=== PATIENT | female | born 1995 | race Caucasian/White ===

== ENCOUNTER 2017-10-13 16:32 | Emergency (ER) | payer MEDICAID ==
[2017-10-13] MEDS: SOD CHLORIDE 0.9% 1,000 ML IV (18:22)
[2017-10-13] MEDS: ACETAMINOPHEN 500 MG TAB PO (18:23)
[2017-10-13 20:26] LABS: URINE BLOOD (Dip) POC Trace-intact (NEGATIVE); URINE GLUCOSE (Dip) POC Negative (NEGATIVE); URINE KETONES (Dip) POC 2+ (NEGATIVE); URINE LEUKOCYTE EST (Dip) POC Negative (NEGATIVE); URINE NITRITE (Dip) POC Negative (NEGATIVE); URINE TOTAL PROTEIN POC Negative (NEGATIVE)
== END 2017-10-13 20:45 | disposition home or self-care (01) ==
LOC: FTE 16:32
DX: O99.89 Other specified diseases and conditions complicating pregnancy, childbirth and the puerperium (principal); R50.9 Fever, unspecified; Z3A.20 20 weeks gestation of pregnancy
CPT/HCPCS: 36415; 76810; 81003; 87400; 99285-25

== ENCOUNTER 2018-03-02 08:06 | Inpatient (IN) | payer MEDICAID ==
[2018-03-02] MEDS: LACTATED RINGER'S 1,000 ML IV ×3 (11:45→22:31)
[2018-03-02] MEDS ORDERED: METHYLERGONOVINE 0.2 MG INJ IM (12:00)
[2018-03-02] MEDS ORDERED: OXYTOCIN 30 UNITS/LR 500 ML IV (12:00)
[2018-03-02] MEDS ORDERED: LIDOCAINE 1% (MPF) 30 ML INJ INJ (12:00)
[2018-03-02] MEDS ORDERED: BUTORPHANOL 2 MG INJ IV (12:00)
[2018-03-02] MEDS ORDERED: CARBOPROST 250 MCG INJ IM (12:00)
[2018-03-02] MEDS ORDERED: MISOPROSTOL 200 MCG TAB PR (12:00)
[2018-03-02 12:04] LABS: ADD MAN DIFF? NO
[2018-03-02 12:12] LABS: ABNORMAL IP MESSAGE 1; BASOPHIL # 0.1 10^3/ul (0.0-0.1); BASOPHILS % 0.5 % (0.0-2.0); EOSINOPHILS # 0.1 10^3/ul (0.0-0.5); EOSINOPHILS % 0.9 % (0.0-7.0); HEMATOCRIT 34.1 % (37.0-47.0); HEMOGLOBIN 11.3 g/dl (12.0-16.0); LYMPHOCYTES % 20.9 % (15.0-51.0); MEAN CORPUSCULAR HEMOGLOBIN 31.8 pg (29.0-33.0); MEAN CORPUSCULAR HGB CONC 33.1 g/dl (32.0-37.0); MEAN CORPUSCULAR VOLUME 96.1 fl (82.0-101.0); MEAN PLATELET VOLUME 13.1 fl (7.4-10.4); MONOCYTE # 0.5 10^3/ul (0.3-0.9); MONOCYTES % 5.3 % (0.0-11.0); NEUTROPHILS % 71.6 % (39.0-77.0); PLATELET COUNT 155 10^3/UL (140-415); RED BLOOD COUNT 3.55 10^6/ul (4.20-5.40); RED CELL DISTRIBUTION WIDTH 13.3 % (11.5-14.5)
[2018-03-02 12:12] LABS: WHITE BLOOD COUNT 9.8 10^3/ul (4.8-10.8)
[2018-03-02 12:17] LABS: POSITIVE DIFF @See below
[2018-03-02 12:33] LABS: PROTIME 13.3 Sec (11.9-14.9)
[2018-03-02 12:34] LABS: PARTIAL THROMBOPLASTIN TIME 27.4 Sec (25.0-35.0)
[2018-03-02 15:05] LABS: RAPID PLASMA REAGIN NONREACTIVE (NR)
[2018-03-02] MEDS: MISOPROSTOL 25 MCG CAPSULE PO ×3 (15:24→22:31)
[2018-03-02] MEDS: MINERAL OIL LIGHT 10 ML VIAL TOP (21:00)
[2018-03-03] MEDS: MISOPROSTOL 25 MCG CAPSULE PO ×3 (02:35→14:35)
[2018-03-03] MEDS: LACTATED RINGER'S 1,000 ML IV ×3 (06:29→21:11)
[2018-03-03] MEDS: OXYTOCIN 30 UNITS/LR 500 ML IV (21:31)
[2018-03-04] MEDS: LACTATED RINGER'S 1,000 ML IV ×3 (01:57→07:19)
[2018-03-04] MEDS ORDERED: FENTAnyl 2MCG/ML-ROPIV 0.2% 100 ML (02:21)
[2018-03-04] MEDS ORDERED: NALOXONE (0.4 MG/ML) INJ IV ×2 (06:30→13:00)
[2018-03-04] MEDS ORDERED: FENTAnyl 2MCG/ML-ROPIV 0.2% 100 ML BAG EPI (06:30)
[2018-03-04] MEDS ORDERED: MISOPROSTOL 200 MCG TAB PR ×2 (08:30→15:30)
[2018-03-04] MEDS ORDERED: CARBOPROST 250 MCG INJ IM ×2 (08:30→15:30)
[2018-03-04] MEDS ORDERED: METHYLERGONOVINE 0.2 MG INJ IM ×2 (08:30→15:30)
[2018-03-04] MEDS ORDERED: OXYTOCIN 30 UNITS/LR 500 ML IV ×3 (08:30→15:30)
[2018-03-04] MEDS ORDERED: OXYTOCIN 10 UNIT INJ (11:26)
[2018-03-04] MEDS ORDERED: PHENYLephrine (100 MCG/ML) 5ML SYG (11:26)
[2018-03-04] MEDS ORDERED: ONDANSETRON 4 MG INJ (11:26)
[2018-03-04] MEDS ORDERED: morphine SULFATE/PF (10 MG/10 ML) INJ (11:29)
[2018-03-04 12:19] LABS: CBV Base Excess -6.6 mmol/L; CBV COHb 0.6 %; CBV Oxygen Sat 50.1 mmHG; CBV Total Hemglobin 14.3 g/dl; Cord Blood Venous AADO2 85.6 mmHg; Cord Blood Venous pO2 22.7 mmHG (15.0-45.0); MODE ROOM AIR; MetHgb Cord Venous 1.6 %; Sample Type CBV; Site CORD
[2018-03-04] MEDS: OXYTOCIN 30 UNITS/LR 500 ML IV ×4 (12:42→22:50)
[2018-03-04] MEDS: CEFAZOLIN 2 GM/50 ML (PMX) 50 ML IV (12:53)
[2018-03-04] MEDS ORDERED: ONDANSETRON 4 MG INJ IV (13:00)
[2018-03-04] MEDS ORDERED: morphine 2 MG INJ IV (13:00)
[2018-03-04] MEDS: KETOROLAC 30 MG INJ IV (13:46)
[2018-03-04] MEDS ORDERED: HYDROCODONE/APAP (5/325) TAB PO ×2 (15:30)
[2018-03-04] MEDS ORDERED: LANOLIN 7 GM TUBE TOP (15:30)
[2018-03-04] MEDS ORDERED: OXYCODONE/ACETAMINOPHEN (5/325) TAB PO (15:30)
[2018-03-04] MEDS: IBUPROFEN 600 MG TAB PO (18:00)
[2018-03-04] MEDS: CEFAZOLIN 1 GM/50 ML (PMX) 50 ML IVPB (18:44)
[2018-03-04] MEDS: DIPHENHYDRAMINE 50 MG INJ IV (20:04)
[2018-03-05] MEDS: KETOROLAC 30 MG INJ IV ×2 (02:58→09:39)
[2018-03-05] MEDS: OXYTOCIN 30 UNITS/LR 500 ML IV ×5 (03:10→15:26)
[2018-03-05] MEDS ORDERED: ACETAMINOPHEN 325 MG TAB PO (04:00)
[2018-03-05] MEDS: ACETAMINOPHEN 500 MG TAB PO (04:01)
[2018-03-05] MEDS: IBUPROFEN 600 MG TAB PO ×4 (06:00→17:24)
[2018-03-05] MEDS: PIPER-TAZO 3.375 GM IV (PMX) 100 ML IVPB ×3 (06:14→21:52)
[2018-03-05 09:18] LABS: ADD MAN DIFF? NO
[2018-03-05 09:20] LABS: WHITE BLOOD COUNT 13.3 10^3/ul (4.8-10.8)
[2018-03-05 09:20] LABS: BASOPHILS % 0.2 % (0.0-2.0); EOSINOPHILS % 0.2 % (0.0-7.0); HEMOGLOBIN 10.2 g/dl (12.0-16.0); LYMPHOCYTES # 1.5 10^3/ul (0.8-2.9); LYMPHOCYTES % 11.6 % (15.0-51.0); MEAN CORPUSCULAR HEMOGLOBIN 31.7 pg (29.0-33.0); MEAN CORPUSCULAR HGB CONC 32.9 g/dl (32.0-37.0); MEAN CORPUSCULAR VOLUME 96.3 fl (82.0-101.0); MEAN PLATELET VOLUME 12.2 fl (7.4-10.4); MONOCYTE # 0.6 10^3/ul (0.3-0.9); MONOCYTES % 4.5 % (0.0-11.0); NEUTROPHILS % 82.7 % (39.0-77.0); PLATELET COUNT 135 10^3/UL (140-415); RED BLOOD COUNT 3.22 10^6/ul (4.20-5.40); RED CELL DISTRIBUTION WIDTH 13.7 % (11.5-14.5)
[2018-03-05 11:22] LABS: AADO2 Arterial 27.1 mmHg (7.0-24.0); Allen Test ACCEPTAB; Arterial Base Excess -3.4 mmol/L (-3.0-3); Arterial Blood Gas Oxygen Sat 96.7 mmHG (95.0-98.0); Arterial COHb 0.3 % (0.0-3.0); Arterial HCO3 19.2 mmol/L (22.0-26.0); Arterial MetHb 0.4 % (0.0-1.5); Arterial Total Hemglobin 10.9 g/dl (12.0-18.0); Arterial pCO2 27.1 mmhg (35-45); MODE ROOM AIR; Site Right Radial
[2018-03-05] MEDS: SENNA/DOCUSATE NA (8.6MG/50MG) TAB PO ×2 (11:55→20:31)
[2018-03-05] MEDS: BISACODYL 10 MG SUPP PR (13:08)
[2018-03-05] MEDS: DOCUSATE SODIUM 100 MG CAP PO ×2 (13:08→20:31)
[2018-03-05 15:03] LABS: ALANINE AMINOTRANSFERASE 22 IU/L (13-69); ALBUMIN 2.7 g/dl (3.3-4.9); ALBUMIN/GLOBULIN RATIO 0.93; ALKALINE PHOSPHATASE 131 IU/L (42-121); ANION GAP 13 (8-16); ASPARTATE AMINO TRANSFERASE 37 IU/L (15-46); BILIRUBIN,INDIRECT 0.7 mg/dl (0-1.1); BILIRUBIN,TOTAL 0.7 mg/dl (0.2-1.3); BLOOD UREA NITROGEN 9 mg/dl (7-20); CARBON DIOXIDE 22 mmol/L (21-31); CHLORIDE 104 mmol/L (97-110); CREATININE 0.68 mg/dl (0.44-1.00); GLUCOSE 86 mg/dl (70-220); POTASSIUM 3.8 mmol/L (3.5-5.1); SODIUM 135 mmol/L (135-144); TOTAL PROTEIN 5.6 g/dl (6.1-8.1)
[2018-03-05] MEDS: ALBUTEROL 0.083% (NEB) 2.5 MG/3 ML AMP HHN (15:53)
[2018-03-05] MEDS: OXYCODONE/ACETAMINOPHEN (5/325) TAB PO (16:28)
[2018-03-05] MEDS: IOHEXOL 100 ML (18:04)
[2018-03-05] MEDS: SOD CHLORIDE 0.9% 100 ML (18:04)
[2018-03-05 18:13] LABS: ADD UMIC YES; UR AMORPHOUS CRYSTAL MANY /HPF (NONE SEEN); UR ASCORBIC ACID NEGATIVE (NEGATIVE); UR BILIRUBIN (Dip) NEGATIVE (NEGATIVE); UR BLOOD (Dip) 2+ mg/dL (NEGATIVE); UR CLARITY TURBID (CLEAR); UR COLOR YELLOW (YELLOW); UR GLUCOSE (Dip) NEGATIVE (NEGATIVE); UR KETONES (Dip) NEGATIVE (NEGATIVE); UR LEUKOCYTE ESTERASE (Dip) NEGATIVE Leu/ul (NEGATIVE); UR NITRITE (Dip) NEGATIVE (NEGATIVE); UR RBC 15 /HPF (0-5); UR SPECIFIC GRAVITY (Dip) 1.019 (1.003-1.030); UR TOTAL PROTEIN (Dip) 1+ mg/dl (NEGATIVE); UR UROBILINOGEN (Dip) NEGATIVE (NEGATIVE); UR WBC 1 /HPF (0-5)
[2018-03-05] MEDS: NA PHOSPHATE/BIPHOS 133 ML ENEMA PR (20:31)
[2018-03-06] MEDS: IBUPROFEN 600 MG TAB PO ×4 (00:24→18:08)
[2018-03-06] MEDS: METOCLOPRAMIDE 10 MG INJ IV ×4 (00:25→18:08)
[2018-03-06] MEDS: OXYCODONE/ACETAMINOPHEN (5/325) TAB PO (00:51)
[2018-03-06] MEDS: LACTATED RINGER'S 1,000 ML IV (05:47)
[2018-03-06] MEDS: PIPER-TAZO 3.375 GM IV (PMX) 100 ML IVPB (05:50)
[2018-03-06 08:41] LABS: ADD MAN DIFF? NO
[2018-03-06 08:46] LABS: WHITE BLOOD COUNT 11.3 10^3/ul (4.8-10.8)
[2018-03-06 08:46] LABS: ABNORMAL IP MESSAGE 1; BASOPHILS % 0.4 % (0.0-2.0); EOSINOPHILS # 0.1 10^3/ul (0.0-0.5); EOSINOPHILS % 0.9 % (0.0-7.0); HEMATOCRIT 29.3 % (37.0-47.0); HEMOGLOBIN 9.6 g/dl (12.0-16.0); LYMPHOCYTES # 1.9 10^3/ul (0.8-2.9); LYMPHOCYTES % 16.8 % (15.0-51.0); MEAN CORPUSCULAR HEMOGLOBIN 31.9 pg (29.0-33.0); MEAN CORPUSCULAR HGB CONC 32.8 g/dl (32.0-37.0); MEAN CORPUSCULAR VOLUME 97.3 fl (82.0-101.0); MEAN PLATELET VOLUME 13.2 fl (7.4-10.4); MONOCYTE # 0.4 10^3/ul (0.3-0.9); MONOCYTES % 3.5 % (0.0-11.0); NEUTROPHIL # 8.8 10^3/ul (1.6-7.5); NEUTROPHILS % 77.9 % (39.0-77.0); PLATELET COUNT 138 10^3/UL (140-415); RED BLOOD COUNT 3.01 10^6/ul (4.20-5.40)
[2018-03-06 08:48] LABS: POSITIVE DIFF @See below
[2018-03-06] MEDS: SENNA/DOCUSATE NA (8.6MG/50MG) TAB PO ×2 (09:03→22:00)
[2018-03-06] MEDS: DOCUSATE SODIUM 100 MG CAP PO (09:03)
[2018-03-06] MEDS ORDERED: DOCUSATE SODIUM 100 MG CAP PO (11:00)
[2018-03-06] MEDS: FUROSEMIDE 20 MG INJ IV (12:35)
[2018-03-06] MEDS: LEVOFLOXACIN 500 MG TAB PO (12:35)
[2018-03-07] MEDS: IBUPROFEN 600 MG TAB PO ×3 (00:31→11:18)
[2018-03-07] MEDS: LEVOFLOXACIN 500 MG TAB PO (05:54)
[2018-03-07 08:11] LABS: ADD MAN DIFF? NO
[2018-03-07 08:14] LABS: BASOPHILS % 0.2 % (0.0-2.0); EOSINOPHILS # 0.1 10^3/ul (0.0-0.5); EOSINOPHILS % 0.9 % (0.0-7.0); HEMATOCRIT 30.1 % (37.0-47.0); HEMOGLOBIN 9.8 g/dl (12.0-16.0); LYMPHOCYTES # 1.6 10^3/ul (0.8-2.9); LYMPHOCYTES % 17.4 % (15.0-51.0); MEAN CORPUSCULAR HEMOGLOBIN 31.1 pg (29.0-33.0); MEAN CORPUSCULAR HGB CONC 32.6 g/dl (32.0-37.0); MEAN CORPUSCULAR VOLUME 95.6 fl (82.0-101.0); MEAN PLATELET VOLUME 12.8 fl (7.4-10.4); MONOCYTE # 0.4 10^3/ul (0.3-0.9); MONOCYTES % 4.4 % (0.0-11.0); NEUTROPHIL # 6.8 10^3/ul (1.6-7.5); NEUTROPHILS % 76.4 % (39.0-77.0); PLATELET COUNT 144 10^3/UL (140-415); RED BLOOD COUNT 3.15 10^6/ul (4.20-5.40); RED CELL DISTRIBUTION WIDTH 14.1 % (11.5-14.5)
[2018-03-07 08:14] LABS: WHITE BLOOD COUNT 8.9 10^3/ul (4.8-10.8)
[2018-03-07] MEDS: SENNA/DOCUSATE NA (8.6MG/50MG) TAB PO (08:56)
[2018-03-07] MEDS: DIPHTH/TET/ACEL PERTUSS (ADULT) 0.5 ML VIAL IM* (11:20)
== END 2018-03-07 15:25 | disposition home or self-care (01) | DRG 766 ==
LOC: OBT 08:06 → L-D 03-04 11:18 → PP1 03-04 15:36 → OBT 10:52 → L-D 10:45
PROVIDERS: Obstetrics & Gynecology
PROC: 10D00Z1 Extraction of Products of Conception, Low, Open Approach (ICD-10-PCS; principal; 2018-03-04)
PROC: 3E033VJ Introduction of Other Hormone into Peripheral Vein, Percutaneous Approach (ICD-10-PCS; 2018-03-04)
DX: O48.0 Post-term pregnancy (principal); O99.513 Diseases of the respiratory system complicating pregnancy, third trimester; O76 Abnormality in fetal heart rate and rhythm complicating labor and delivery; O62.0 Primary inadequate contractions; O99.214 Obesity complicating childbirth; E66.9 Obesity, unspecified; Z68.31 Body mass index [BMI] 31.0-31.9, adult; Z37.0 Single live birth; Z3A.40 40 weeks gestation of pregnancy
CPT/HCPCS: 36415; 36600; 62319; 71046; 71275; 76815; 76818; 80053; 81001; 82803; 85025; 85610; 85730; 86592; 86850; 86900; 86901; 87040; 87086; 88307; 90715; 93005; 93306; 93970; 94664; 99464

== ENCOUNTER 2018-08-05 09:13 | Emergency (ER) | payer MEDICAID ==
[2018-08-05] MEDS ORDERED: LIDOCAINE 1% (MDV) 20 ML INJ SC (11:00)
[2018-08-05] MEDS: LIDOCAINE 1% (MPF) 30 ML INJ SC (11:23)
[2018-08-05] MEDS: BACITRACIN 0.9 GM OINT TOP (11:58)
== END 2018-08-05 10:43 | disposition home or self-care (01) ==
LOC: FTE 09:13
DX: L60.0 Ingrowing nail (principal)
CPT/HCPCS: 11765; 99283-25